=== PATIENT | female | born 1935 | race Caucasian/White ===

== ENCOUNTER 2019-12-09 12:54 | Inpatient (IN) | payer MEDICARE ==
[~2019-12-09] VITALS: Ht 162.6 cm; Wt 60.3 kg
--- NOTE | 2019-12-09 13:15 | NUR ---
DOLL MAKER NOTE- PT ADMITTED [facility] ANOTHER HOSPITAL FOR DX- PSYCHOSIS AND GERD. 5150 DTS, PT HAS NKA AND IS A FULL CODE, ON FACE TO FACE ASSESSMENT, PT IS ALERT ORIENTED TO PERSON PLACE AND SITUATION. DENIES SI HI AH VH. STATES 'MY IN THIS PAST YEAR AND THE FAMILY JUST WANTED ME OUT OF THE HOUSE TO SELL EVERYTHING' STATES HER FAMILY TOLD POLICE THAT 'IM HEARING THINGS AND PEOPLE ARE DRIVING PAST HOUSE ALOT' PT SEEMS MILDLY CONFUSED AND GUARDED. DOES STATE SHE HAS CANCER AND HER HAIR IS FALLING OUT BUT NO MORE DETAILS GIVEN. NO HX NOTED OF [place] ANYWHERE. FLAT AFFECT THOUGH INITIATES AND IS INTERACTIVE. MRSA SWAB DONE, VS- BP-131/76, HR-79, RR-16, T-97.9 SATS-97% RA. ACCU CHECK BS-88. PT IS 5'4'' AND 133 LBS. NO SURGICAL OR PMHX GIVEN OUTSIDE OF ANXIETY AND GERD. + HX BENZO USE. PT AMBULATORY, SKIN CHECK DONE W FEMALE RN. SKIN INTACT. PT RIGHTS PAMPHLET PROVIDED. ORIENTED TO UNIT AND ROUTINE. NOTIFIED OF ADMISSION. ORDERS GIVEN COMPLIED WITH.
[2019-12-09] MEDS ORDERED: ESOM40CA52 PO (13:28)
[2019-12-09] MEDS ORDERED: TRAZ-252 PO (13:28)
[2019-12-09] MEDS ORDERED: LORAZEPAM 0.5 MG TABLET PO PRN (13:30)
[2019-12-09] MEDS ORDERED: BLOOD SUGAR DIAGNOSTIC 1 EACH STRIP IN ONE (13:30)
[2019-12-09] MEDS ORDERED: MAG HYDROX/AL HYDROX/SIMETH 30 ML UDC PO PRN (13:30)
[2019-12-09] MEDS ORDERED: ACET-868 PO (13:32)
[2019-12-09] MEDS: ACETAMINOPHEN 325 MG TABLET PO PRN (15:15)
--- NOTE | 2019-12-09 15:15 | NUR ---
RN NOTE- PT C/O HEADACHE/ TYLENOL 650 MG GIVEN
[2019-12-09 16:00] VITALS: BP 131/83
--- NOTE | 2019-12-09 16:00 | NUR ---
LETTY ROWLEY (SENIOR HARDWARE DESIGN ENGINEER) MADE AWARE OF THE ADMISSION AND TOLD TO RECONCILED THE MEDS AND SAID OK.
[2019-12-09 20:01] VITALS: BP 110/63
[2019-12-09] MEDS: TEMAZEPAM 7.5 MG CAPSULE PO PRN (21:30)
--- NOTE | 2019-12-09 22:23 | NUR ---
[facility] RN NOTES: AT 2129 PT REQUESTED FOR SLEEP MEDICATION D/T INSOMNIA. RESTORIL 7.5MG 1 TAB GIVEN PO PRN ORDERED. PT CURRENTLY SLEEPING. WILL CONTINUE TO MONITOR.
[2019-12-10] MEDS: MAGNESIUM HYDROXIDE 30 ML UDC PO PRN (06:56)
--- NOTE | 2019-12-10 07:03 | NUR ---
[facility] RN CLOSING NOTES: PT AWAKE, ALERT AND ORIENTED X2. COMPLAINED OF CONSTIPATION, MOM 1 CUP 30ML GIVEN PO PRN ORDERED AT 0656. NO BEHAVIORAL ISSUES THIS SHIFT. PT SLEPT FOR 7 HR. NO S/S OF DISTRESS, RESPIRATION EVEN AND UNLABORED WITH EQUAL RISE AND FALL OF THE CHEST ON ROOM AIR. ALL PT CARE NEEDS MET ANTICIPATED. WILL CONTINUE TO MONITOR AND ENDORSE TO AM SHIFT.
[2019-12-10] MEDS: PANTOPRAZOLE 40 MG TABLET.DR PO SCH (07:54)
[2019-12-10 08:00] VITALS: BP 135/66
[2019-12-10 08:12] LABS: ALBUMIN 3.4 g/dL (3.4-5.0); BILIRUBIN,TOTAL 0.6 mg/dL (0.2-1.0); CALCIUM, SERUM 8.7 mg/dL (8.5-10.1); CREATININE 0.8 mg/dL (0.6-1.3); POTASSIUM 4.2 mmol/L (3.5-5.1); TOTAL PROTEIN, SERUM 6.9 g/dL (6.4-8.2)
[2019-12-10 08:19] LABS: CHOLESTEROL 185 mg/dL (<200); HDL CHOLESTEROL 64 mg/dL (40-60); LDL 99 mg/dL (0-99); TRIGLYCERIDES 80 mg/dL (30-150)
[2019-12-10] MEDS: ACETAMINOPHEN 325 MG TABLET PO PRN (14:14)
[2019-12-10 16:00] VITALS: BP 129/74
[2019-12-10] MEDS: risperiDONE 0.25 MG TABLET PO SCH (16:36)
[2019-12-10] MEDS: BENZTROPINE MESYLATE (1 MG) 1 MG TABLET PO SCH (16:36)
[2019-12-10] MEDS ORDERED: risperiDONE-M 0.5 MG TAB.RAPDIS PO SCH (17:00)
[2019-12-10 21:00] VITALS: BP 111/56
[2019-12-10] MEDS: TEMAZEPAM 7.5 MG CAPSULE PO PRN (21:14)
--- NOTE | 2019-12-11 06:37 | NUR ---
[facility] RN CLOSING NOTES: PT LAYING ON BED SLEEPING. NO BEHAVIORAL ISSUES THIS SHIFT. PT SLEPT FOR 8 HR. NO S/S OF DISTRESS, RESPIRATION EVEN AND UNLABORED WITH EQUAL RISE AND FALL OF THE CHEST ON ROOM AIR. ALL PT CARE NEEDS MET ANTICIPATED. WILL CONTINUE TO MONITOR AND ENDORSE TO AM SHIFT.
[2019-12-11 08:00] VITALS: BP 121/76
[2019-12-11] MEDS: risperiDONE 0.25 MG TABLET PO SCH ×2 (08:07→16:19)
[2019-12-11] MEDS: BENZTROPINE MESYLATE (1 MG) 1 MG TABLET PO SCH ×2 (08:07→16:19)
[2019-12-11] MEDS: PANTOPRAZOLE 40 MG TABLET.DR PO SCH (08:07)
[2019-12-11] MEDS: ACETAMINOPHEN 325 MG TABLET PO PRN (08:29)
[2019-12-11 16:00] VITALS: BP 112/72
[2019-12-11] MEDS: MAGNESIUM HYDROXIDE 30 ML UDC PO PRN (17:50)
--- NOTE | 2019-12-11 18:04 | NUR ---
RN NOTES PT REPORTED BEING CONSTIPATED AND REQUESTING FOR MOM, GIVEN PRN ORDERED. PER PT LAST BM WAS TWO DAYS AGO.
[2019-12-11 19:35] VITALS: BP 114/67
[2019-12-11] MEDS: TEMAZEPAM 7.5 MG CAPSULE PO PRN (21:33)
[2019-12-12] MEDS: PANTOPRAZOLE 40 MG TABLET.DR PO SCH (07:59)
[2019-12-12 08:00] VITALS: BP 122/72
[2019-12-12] MEDS: risperiDONE 0.25 MG TABLET PO SCH ×2 (09:01→17:34)
[2019-12-12] MEDS: BENZTROPINE MESYLATE (1 MG) 1 MG TABLET PO SCH ×2 (09:01→17:34)
--- NOTE | 2019-12-12 15:26 | NUR ---
SW Family Contact: Patient's daughter Alejandra ([phone]) states that she is the DPOA and will send this editorial writer the documents. Alejandra is agreeable for pt to transition to a SNF. This editorial writer will find pt an alternative placement. Alejandra shared with this editorial writer that pt has been calling her and stating that she has not been taking her medications and has been spitting them out once the nurses leaves. This editorial writer informed Donald to share with nursing.
--- NOTE | 2019-12-12 15:26 | NUR ---
SW Initial Discharge Plan: Patient currently resides at [address] [place] [address], [place] [address]; ([phone]). Patient's daughter Alejandra ([phone]) states that she is the DPOA and will send this quality analyst/technical writer the documents. Alejandra is agreeable for pt to transition to a SNF. This quality analyst/technical writer will find pt an alternative placement. This quality analyst/technical writer will work with the MD and treatment team for proper discharge.
[2019-12-12 16:00] VITALS: BP 127/62
--- NOTE | 2019-12-12 16:13 | NUR ---
DPOA Documents: This speech writer received DPOA documents from patient's daughter Alejandra ([phone]) and is the DPOA for pt. This speech writer placed it in the chart.
[2019-12-12 19:45] VITALS: BP 108/67
[2019-12-12] MEDS ORDERED: risperiDONE 0.25 MG TABLET PO SCH (22:00)
[2019-12-12 22:31] VITALS: BP 136/85
[2019-12-12] MEDS: TEMAZEPAM 7.5 MG CAPSULE PO PRN (22:39)
[2019-12-13] MEDS: PANTOPRAZOLE 40 MG TABLET.DR PO SCH (07:53)
[2019-12-13 08:00] VITALS: BP 122/65
[2019-12-13] MEDS: risperiDONE 0.25 MG TABLET PO SCH ×3 (08:17→21:40)
[2019-12-13] MEDS: BENZTROPINE MESYLATE (1 MG) 1 MG TABLET PO SCH ×2 (08:17→16:55)
[2019-12-13] MEDS: ACETAMINOPHEN 325 MG TABLET PO PRN ×2 (08:38→19:45)
--- NOTE | 2019-12-13 08:38 | NUR ---
RN NOTE: PAIN PT C/O 06/06 HEACHACHE. PT REQUESTING TYLENOL. TYLENOL 650 MG PO PRN GIVEN
--- NOTE | 2019-12-13 13:30 | NUR ---
LAKISHA Coordination of Care: This quality analyst/technical writer faxed medication list, H & P notes, and lab notes to [facility]. Per Betty admin, ([phone]) will review clinicals.
[2019-12-13 16:00] VITALS: BP 126/67
[2019-12-13 19:51] VITALS: BP 139/81
--- NOTE | 2019-12-13 19:52 | NUR ---
[facility] RN NOTE: PAIN PT WAS COMPLAINING OF PAIN IN HER BACK, REQUESTED TYLENOL. ADMIN TYLENOL PRN @ 1945. WILL CONTINUE TO MONITOR Q15MIN FOR SAFETY AND BEHAVIOR.
[2019-12-13] MEDS: TEMAZEPAM 7.5 MG CAPSULE PO PRN (22:55)
--- NOTE | 2019-12-13 22:59 | NUR ---
[facility]PS RN NOTE: INSOMNIA PT COMPLAINED OF INSOMNIA, REQUESTED RESTORIL VSS, BP: 127/66, HR: 76, O2: 98% RA, RR: 19. ADMIN RESTORIL PRN @ 2255, WILL REASSESS AND CONTINUE TO MONITOR Q15MIN FOR SAFETY AND BEHAVIOR
[2019-12-14 08:00] VITALS: BP 119/62
[2019-12-14] MEDS: BENZTROPINE MESYLATE (1 MG) 1 MG TABLET PO SCH ×2 (08:21→16:53)
[2019-12-14] MEDS: PANTOPRAZOLE 40 MG TABLET.DR PO SCH (08:21)
[2019-12-14] MEDS: risperiDONE 0.25 MG TABLET PO SCH ×3 (08:21→21:29)
--- NOTE | 2019-12-14 08:53 | NUR ---
SW Note: Patient's daughter Alejandra ([phone]) sent this commercial lines underwriter Advanced Directive of pt and this commercial lines underwriter placed in the chart.
--- NOTE | 2019-12-14 10:23 | NUR ---
SW Family Contact: This securities underwriter contacted patient's daughter Alejandra ([phone]) to discuss discharge planning but was currently unavailable. This securities underwriter left a voicemail.
--- NOTE | 2019-12-14 12:09 | NUR ---
LAKISHA Coordination of Care: This insurance underwriter sales faxed Stacey hinojosa ([phone]) clinicals to pt for review. This insurance underwriter sales sent medication list, H & P notes, and Lab notes.
--- NOTE | 2019-12-14 13:44 | NUR ---
PROBABLE CAUSE HEARING: Patient had probable cause hearing today which was upheld for grave disability.
[2019-12-14 16:00] VITALS: BP 117/68
[2019-12-14] MEDS: MAGNESIUM HYDROXIDE 30 ML UDC PO PRN (18:13)
[2019-12-14 20:00] VITALS: BP 137/71
[2019-12-14 20:01] VITALS: BP 134/88
--- NOTE | 2019-12-15 08:12 | NUR ---
SW Note: This health underwriter met with the pt and discussed discharge planning and placement. Per this health underwriter explained that pt will require a SNF and pt was agreeable with SNF.
[2019-12-15] MEDS: BENZTROPINE MESYLATE (1 MG) 1 MG TABLET PO SCH ×2 (08:24→16:28)
[2019-12-15] MEDS: risperiDONE 0.25 MG TABLET PO SCH (08:24)
[2019-12-15] MEDS: PANTOPRAZOLE 40 MG TABLET.DR PO SCH (08:25)
[2019-12-15 08:45] VITALS: BP 131/71
--- NOTE | 2019-12-15 10:29 | NUR ---
LAKISHA Family Contact: LAKISHA attempting to discuss discharge planning with daughter Alejandra COLLAZO ([phone]) who resides in [place], [place]. She expressed she would want pt to go to a nursing facility near her. However, this leader writer explained several times that we are unable to do so. This leader writer shared that the treatment team in the hospital recommends a care home facility for the patient. This leader writer stated that we can place the pt anywhere in the [place] area but not outside. Alejandra left this leader writer a voicemail requesting that the patient be placed near [place]. This leader writer explained to Alejandra that the [facility] she may find placement for pt and we can coordinate with the facility to get her accepted. This leader writer is waiting for a call back to discuss further.
--- NOTE | 2019-12-15 11:02 | NUR ---
LAKISHA Family Contact: LAKISHA attempting to discuss discharge planning with daughter Alejandra COLLAZO ([phone]). Alejandra was agreeable with nursing facility for pt. Alejandra stated that pt has been spitting her medications out. This typewriter assembly and parts inspector informed nursing. Per Alejandra, she stated that next week December 18- her daughter will be receiving treatment for cancer and will be unavailable, however, she would want SW to leave a detailed voicemail in terms of dc day.
[2019-12-15 16:20] VITALS: BP 102/57
[2019-12-15] MEDS: risperiDONE-M 0.5 MG TAB.RAPDIS PO SCH (16:28)
[2019-12-15 19:58] VITALS: BP 105/63
[2019-12-15] MEDS: TEMAZEPAM 7.5 MG CAPSULE PO PRN (22:20)
--- NOTE | 2019-12-15 22:20 | NUR ---
GPS/RN NOTES: PATIENT REQUESTED OF SLEEPING MEDICATION. VS STABLE AND WNL. PRN RESTORIL 7.5MG 1 CAP ADMINISTERED ORDERED. WILL CONTINUE TO MONITOR ACCORDINGLY.
[2019-12-16 08:00] VITALS: BP 124/71
[2019-12-16] MEDS: risperiDONE-M 0.5 MG TAB.RAPDIS PO SCH ×2 (08:26→17:10)
[2019-12-16] MEDS: PANTOPRAZOLE 40 MG TABLET.DR PO SCH (08:26)
[2019-12-16 16:00] VITALS: BP 120/67
[2019-12-16] MEDS: BENZTROPINE MESYLATE (1 MG) 1 MG TABLET PO SCH (17:10)
[2019-12-16 20:33] VITALS: BP 107/79
[2019-12-17] MEDS: TEMAZEPAM 7.5 MG CAPSULE PO PRN ×2 (01:25→21:35)
--- NOTE | 2019-12-17 01:27 | NUR ---
[facility] RN NOTE: INSOMNIA PT C/O OF INSOMNIA, REQUESTED RESTORIL, ADMIN RESTORIL 7.5 MG PO PRN GIVEN, WILL REASSESS AND CONTINUE TO MONITOR Q15MIN FOR SAFETY AND BEHAVIOR
--- NOTE | 2019-12-17 06:29 | NUR ---
[facility]PS RN NOTES: PT. RESTING IN HER ROOM, CALM NOTED AT THIS TIME . NO S/S OF DISTRESS NOTED . NO CHANGE OF CONDITION NOTED, ALL CARE NEEDS MET ANTICIPATED. WILL CONTINUE TO MONITOR FOR SAFETY BEHAVIOR, AND ENDORSE TO AM SHIFT FOR CONTINUITY OF CARE.
[2019-12-17 08:00] VITALS: BP 119/69
[2019-12-17] MEDS: risperiDONE-M 0.5 MG TAB.RAPDIS PO SCH ×2 (08:14→16:19)
[2019-12-17] MEDS: PANTOPRAZOLE 40 MG TABLET.DR PO SCH (08:14)
[2019-12-17 16:00] VITALS: BP 120/55
[2019-12-17] MEDS: BENZTROPINE MESYLATE (1 MG) 1 MG TABLET PO SCH (16:19)
[2019-12-17 19:49] VITALS: BP 112/56
[2019-12-17 19:50] VITALS: BP 116/80
[2019-12-17] MEDS: ACETAMINOPHEN 325 MG TABLET PO PRN (21:31)
--- NOTE | 2019-12-17 21:35 | NUR ---
GPS RN NOTE: PT COMPLAINED OF HEADACHE TYLENOL 325MG 2 TABS GIVEN PRN ORDERED. WILL CONTINUE TO MONITOR.
--- NOTE | 2019-12-17 21:37 | NUR ---
[facility]PS RN NOTE: PT REQUESTED FOR SLEEP MEDICATION D/T INSOMNIA, RESTORIL 7.5MG 1 CAP GIVEN PO PRN ORDERED AT 2134. WILL CONTINUE TO MONITOR.
[2019-12-18 08:00] VITALS: BP 117/70
[2019-12-18] MEDS: risperiDONE-M 0.5 MG TAB.RAPDIS PO SCH ×2 (08:22→17:35)
[2019-12-18] MEDS: PANTOPRAZOLE 40 MG TABLET.DR PO SCH (08:22)
[2019-12-18 16:00] VITALS: BP 120/69
[2019-12-18] MEDS: BENZTROPINE MESYLATE (1 MG) 1 MG TABLET PO SCH (17:35)
[2019-12-18 21:00] VITALS: BP 111/62
[2019-12-18] MEDS: TEMAZEPAM 7.5 MG CAPSULE PO PRN (21:07)
--- NOTE | 2019-12-18 21:10 | NUR ---
[facility]PS RN NOTE: INSOMNIA PT COMPLAINED OF DIFFICULTY SLEEPING, REQUESTED SLEEPING PILL, ADMIN RESTORIL PRN @ 4298. WILL REASSESS AND CONTINUE TO MONITOR Q15MIN FOR SAFETY AND BEHAVIOR.
[2019-12-19 08:00] VITALS: BP 134/75
[2019-12-19] MEDS: PANTOPRAZOLE 40 MG TABLET.DR PO SCH (08:39)
[2019-12-19] MEDS: risperiDONE-M 0.5 MG TAB.RAPDIS PO SCH (08:39)
--- NOTE | 2019-12-19 11:10 | NUR ---
gps metal baler: notes antoni ([email or web address].w.) arranged discharge planning this afternoon per dr. tristan (psych). covid antigen stat ordered. dr. mckeon notified and made aware. daughter/dpoa (farhana) aware of discharge per social service liaison. pt made aware.
--- NOTE | 2019-12-19 11:22 | NUR ---
Family Contact: SW called the pts daughter, Alejandra COLLAZO ([phone]), and left a voicemail that informed her that the pt is being discharged to [facility] today.
--- NOTE | 2019-12-19 11:23 | NUR ---
Discharge Note: Pt was discharged to [facility] located at [address] [place] [address]; . Pt was transported via [facility] at 2PM. Pts daughter/DPOA, Alejandra ([phone]), was made aware of the placement. Upon discharge, the pt appeared to be in a euthymic mood and presented with a distressed affect. Pt appeared to be alert and oriented x4 (time, place, self, and situation). Pt denied both suicidal and homicidal ideation as well as auditory and visual hallucinations. Pt will be under the care of her psychiatrist, Dr. Fuller, located at [address], [place] [address]; and her damage adjuster, Dr. Suazo, located at [address] [address]; . The multidisciplinary exit care form was done, printed, signed, and given to the patient.
--- NOTE | 2019-12-19 12:40 | NUR ---
gps otolaryngology surgeon: notes report given to christelle (rn) for continuity of care.
--- NOTE | 2019-12-19 12:45 | NUR ---
DEIDRA NOTES PATIENT RECEIVED FROM MORALES ESTES WILL CONTINUE TO MONITOR AND FOLLOW PLAN OF CARE. Addendum: 12/19/19 at 1526 by MARLIN PAIGE RN RN NOTES PATIENT RECEIVED FROM LVN. MORALES WILL CONTINUE TO MONITOR AND FOLLOW PLAN OF CARE
--- NOTE | 2019-12-19 14:30 | NUR ---
RN NOTES CALLED [facility] FOR REPORT SPOKE WITH LLOYD, CHARGE NURSE .
--- NOTE | 2019-12-19 14:55 | NUR ---
CIGARETTE PACKAGE EXAMINER NOTES PATIENT ALERT AND ORIENTED X 2. ON ROOM AIR WITH NO RESPIRATORY DISTRESS PRESENT AT THIS TIME WITH EVEN NON-LABORED BREATHING, AND NO SOB NOTED. PATIENT VITAL SIGNS STABLE. ID BAND REMOVED. PATIENT DENIES SI/HI, AH/VH AT THIS TIME. PATIENT LEFT UNIT WITH EMT, TRANSPORTATION VIA GURNEY. FAXED OVERED COVID-19 RESULTS TO [facility] FAX NUMBER .
== END 2019-12-19 14:55 | DRG 885 ==
LOC: GPS 12:54
PROVIDERS: ADMIT Psychiatry & Neurology Psychosomatic Medicine; ATTEND Hospitalist
DX: F25.0 Schizoaffective disorder, bipolar type (principal); F41.9 Anxiety disorder, unspecified; K21.9 Gastro-esophageal reflux disease without esophagitis; G31.84 Mild cognitive impairment of uncertain or unknown etiology; F39 Unspecified mood [affective] disorder; F29 Unspecified psychosis not due to a substance or known physiological condition
CPT/HCPCS: 36415; 80053-TC; 80061-TC; 82962-TC; 87081-TC